=== PATIENT | female | born 1960 | race Caucasian/White ===

== ENCOUNTER → 2023-06-30 10:52 | Outpatient (REF) | payer MEDICARE, SELFPAY | LOC: HWRAD 10:52 | PROVIDERS: ATTENDING PHYSICIAN Internal Medicine; FAMILY PHYSICIAN Nurse Practitioner | DX: R63.4 Abnormal weight loss (principal); R68.81 Early satiety; R11.0 Nausea | CPT/HCPCS: 74177; Q9967 ==

== ENCOUNTER 2023-08-06 15:00 | Emergency (ER) | payer MEDICARE, SELFPAY ==
[2023-08-06 15:04] VITALS: BP 127/87
[2023-08-06 16:32] LABS: % Basophils 0.5 % (0-2); % Eosinophils 1.2 % (0-6); % Immature Granulocytes 0.4 % (0-0.5); % Lymphocytes 30.6 % (20.5-51.1); % Monocytes 6.2 % (1.7-9.3); % Neutrophils 61.1 % (42.2-75.2); Absolute Eosinophils 0.1 10^3/uL (0-0.7); Absolute Lymphocytes 2.3 10^3/uL (1.2-3.4); Absolute Monocytes 0.5 10^3/uL (0.1-0.6); Absolute Neutrophils 4.5 10^3/uL (1.4-6.5); Hematocrit 38.7 % (37.0-47.0); Hemoglobin 13.2 g/dL (12.0-16.0); Mean Corp Hgb Conc. 34.1 g/dL (33.0-37.0); Mean Corpuscular Hgb 30.4 pg (27.0-31.0); Mean Corpuscular Volume 89.2 fL (81.0-99.0); Mean Platelet Volume 11.3 fL (7.4-10.4); Nucleated Red Blood Cells % 0 %; Platelet Count 212 10^3/uL (130-400); Red Blood Cell Count 4.34 10^6/uL (4.20-5.40); Red Cell Dist. Width 13.1 % (11.5-14.5); White Blood Cell Count 7.4 10^3/uL (4.8-10.8)
[2023-08-06 16:48] LABS: ALT (SGPT) 13 U/L (0-35); AST (SGOT) 24 U/L (14-36); Albumin 4.1 g/dl (3.5-5.0); Alkaline Phosphatase 76 U/L (38-126); Blood Urea Nitrogen 17 mg/dl (7-17); Calcium 9.2 mg/dl (8.4-10.2); Carbon Dioxide 25 mmol/L (22-30); Chloride 105 mmol/L (98-107); Glucose 91 mg/dl (70-99); Potassium 3.8 mmol/L (3.5-5.1); Sodium 138 mmol/L (135-145); Total Bilirubin 0.4 mg/dl (0.2-1.3); Total Protein 6.8 g/dl (6.3-8.2); eGFR > 60.00
[2023-08-06 16:50] LABS: Urine Albumin Negative (Neg - Trace); Urine Bilirubin Negative (Negative); Urine Character Clear (Clear); Urine Color Yellow; Urine Glucose Negative (Negative); Urine Ketone Negative (Negative); Urine Leukocyte 2+ (Negative); Urine Nitrite Negative (Negative); Urine Occult Blood Negative (Negative); Urine Urobilinogen Negative (Neg - 1+)
[2023-08-06 16:55] LABS: Urine Squamous Cell >30 /LPF (Few)
[2023-08-06 16:56] LABS: Urine Red Blood Cell 0-2 /HPF (0-2)
[2023-08-06 16:57] LABS: Urine Bacteria Moderate (Negative); Urine White Cell 16-20 /HPF (0-5)
[2023-08-06 18:43] VITALS: BP 111/74
[2023-08-06 19:06] VITALS: BP 126/78
--- NOTE | 2023-08-06 19:44 | ED.GENMED ---
History of Present Illness
General
Chief Complaint: Flank Pain
Source: patient and family
Exam Limitations: none
Time Seen by Provider: 08/06/23 15:42
Nursing documentation reviewed up to this point in time: agreed with
Travel History
Have you had any contact with someone who has COVID-19?: No
Do you have any symptoms of coronavirus? Fever > 100 degrees, chills, cough, shortness of breath, sore throat, loss of taste or smell, muscle aches, or headache?: No
History of Present Illness
History of Present Illness:
62-year-old female with past medical history of hypothyroidism anxiety and depression presenting to the emergency department today with concerns of left-sided flank discomfort over the past 4 days. Denies any changes in bowel or bladder denies any
numbness or weakness to the lower extremities denies any urinary changes, changes in bowel movements, nausea vomiting fevers. Denies history of kidney stones does this seem to be somewhat worse with some positioning and movements.
Past History
Past History
ED Past Medical History: Psychiatric (Anxiety,depression) and Other (migraines)
ED Past Surgical History: None
Social History
Tobacco: Non-smoker
Alcohol: None
Personal: Single
Living: with family
Employment: Not employed
Review of Systems
Review of Systems
Allergies reviewed?: Yes
All Other Systems: ROS reviewed and negative except as documented in HPI and ROS
Phy Exam
Physical Exam
Physical Exam:
GENERAL: Alert , in no apparent distress
EYE: pupils equal and reactive
NECK: Supple, no significant adenopathy.
ENT: o/p clr, mmm.
CARDIAC: Regular rate and rhythm .
LUNGS: Clear breath sounds bilaterally, no acute respiratory distress, no wheezes/rales/rhonchi
ABDOMEN: Soft, without focal tenderness, no r/g, no cvat
NEUROLOGICAL: Alert and oriented, no focal neuro deficits
SKIN: Warm and dry, skin intact.
MUSCULOSKELETAL: No edema, well perfused.
PSYCH: Normal and appropriate interaction.
Course
Orders/Labs/Results
Orders:
Orders
08/06/23 16:05
CT Abd/pel Without Iv Or Oral Urgent
Comment:
Reason For Exam: L flank pain
08/06/23 16:12
Complete Blood Count/With Diff Urgent
Comprehensive Metabolic Panel Urgent
08/06/23 16:32
Urinalysis Reflex To Culture Urgent
Date Specimen was Collected: 08/06/23
Time Specimen was Collected: 16:16
Urine Microscopic Reflex Cult Urgent
Urine Culture Urgent
MICHAEL Source: U
Specimen Description:
Date Specimen was Collected: 08/06/23
Time Specimen was Collected: 16:16
Abnormal Lab Results
08/06/23 08/06/23
16:12 16:32
MPV 11.3 H fL
(7.4-10.4)
Leukocyte Esterase Rfl 2+ A
(Negative)
Urine WBC (Reflex) 16-20 A /HPF
(0-5)
Urine Bacteria (Reflex) Moderate A
(Negative)
08/06/23 16:12
08/06/23 16:12
Vital Signs
Initial and Last Documented VS:
Initial Vital Signs
Temp Pulse Resp BP Pulse Ox
98.8 F 65 18 127/87 100
08/06/23 15:04 08/06/23 15:04 08/06/23 15:04 08/06/23 15:04 08/06/23 15:04
Last Documented Vital Signs
Temp Pulse Resp BP Pulse Ox
97.9 F 65 20 126/78 95
08/06/23 19:06 08/06/23 19:06 08/06/23 19:06 08/06/23 19:06 08/06/23 19:06
MDM/Problems Addressed
MDM/Problems Addressed:
62-year-old female presenting to the emergency department today with concerns of left-sided flank pain over the past 4 days with some radiation from low back to left side of the abdomen. Denies urinary symptoms bowel changes nausea vomiting or
fevers. Patient generally well-appearing here no acute distress appropriately reproducible to palpation or movement concerning this plan for CT scan for assessment of potential intra-abdominal or retroperitoneal pathology. Labs unremarkable here
urinalysis a dirty sample with large amount of squamous epithelial cells. Patient without symptoms consistent with urinary tract infection. No plans to start antibiotics at this time. CT scan without emergent findings. Patient with likely
mechanical back pain plan for outpatient follow-up. Return precautions given.
*Critical Care Note
Total Time (30-74mins, 75-104mins- exclusive of procedures): Not Applicable
ED Attending Note
-
Portions of this chart may have been created with voice recognition software.� Occasional wrong word or��sound alike� substitutions may have occurred due to the inherent limitations of voice recognition software.
Discharge Plan
Departure
Patient Disposition: Home (Routine Discharge)
Date of Disposition: 08/06/23
Time of Disposition: 19:46
Patient with high blood pressure during this ER visit?: No
Condition: Good
Covid-19: Not Applicable
Discharge Problem:
Flank pain
Instructions: Flank Pain (DC)
Prescriptions:
No Action
duloxetine [Cymbalta] 60 MG capsule,delayed release(DR/EC)
60 mg PO DAILY
Risperdal:
Patient Comments:
patient states dose unknown
Imitrex
PO
Patient Comments:
dose unknow
prednisone 50 MG tablet
50 mg PO DAILY Qty: 5 0RF
Rx Instructions:
w/ a meal
Referrals:
Rj Suárez MD [Active] - Follow up in 5-7 days
Angeles Nova CRNP [Family Provider] -
Activity Restrictions/Additional Instructions:
You came to the emergency department today with concerns of flank discomfort. Here your reassuring evaluation with normal CT scan and normal labs and urinalysis without emergent findings. Please follow closely with your primary care doctor and
your back doctor as needed. Return to the emergency department for any worsening, new or concerning symptoms.
Interventions
Interventions:
*Risk Screen - Suicide Last Done: 08/06/23 15:04
*General Assessment Last Done: 08/06/23 15:04
*Neglect/Abuse Screening Last Done: 08/06/23 15:04
ED- Fall Risk Assessment Last Done: 08/06/23 19:06
*ED COVID-19 Vaccine History Last Done: 08/06/23 15:04
GL-Imvnsj-Fmandgrdhe Assessment Last Done: 08/06/23 19:06
ED-Female Genitourinary Assessment Last Done: 08/06/23 19:06
== END 2023-08-06 20:15 | disposition home or self-care (01) ==
LOC: EMR 15:00
PROVIDERS: Physician Assistant; EMERGENCY PHYSICIAN Student in an Organized Health Care Education/Training Program; FAMILY PHYSICIAN Nurse Practitioner
DX: R10.9 Unspecified abdominal pain (principal); E03.9 Hypothyroidism, unspecified; F32.A Depression, unspecified; F41.9 Anxiety disorder, unspecified
CPT/HCPCS: 99284; 74176; 80053; 81003; 81015; 85025; 87086

== ENCOUNTER → 2023-09-02 13:13 | Outpatient (REF) | payer MEDICARE, SELFPAY | LOC: WDC 13:13 | PROVIDERS: ATTENDING PHYSICIAN Nurse Practitioner | DX: Z12.31 Encounter for screening mammogram for malignant neoplasm of breast (principal) | CPT/HCPCS: 77063; 77067 ==

== ENCOUNTER → 2023-11-24 09:54 | Outpatient (REF) | payer MEDICARE, SELFPAY | LOC: MRI 3T 09:54 | PROVIDERS: ATTENDING PHYSICIAN Internal Medicine Gastroenterology | DX: K83.8 Other specified diseases of biliary tract (principal) | CPT/HCPCS: 74183; A9575 ==

== ENCOUNTER → 2024-09-20 13:57 | Outpatient (REF) | payer MEDICARE, SELFPAY | LOC: HWWDC 13:57 | PROVIDERS: ATTENDING PHYSICIAN Nurse Practitioner | DX: Z12.31 Encounter for screening mammogram for malignant neoplasm of breast (principal) | CPT/HCPCS: 77063; 77067 ==